=== PATIENT | male | born 1995 | race Caucasian/White ===

== ENCOUNTER 2019-12-02 18:36 | Emergency (ER) | payer OTHER ==
[~2019-12-02] VITALS: Ht 167.6 cm; Wt 75.0 kg
[2019-12-02] MEDS ORDERED: BACI500O21 TOP (19:59)
[2019-12-02 20:04] VITALS: BP 138/91
--- NOTE | 2019-12-02 20:04 | REP ---
Clinical: Trauma. Rule out foreign body. Technique: AP and lateral views of the cervical spine. Findings: Normal alignment and lordosis maintained. Vertebral bodies are intact. No acute fracture / compression injury or subluxation. Spinous processes are intact. Prevertebral and surrounding soft tissues are normal. No subcutaneous emphysema or foreign body. Impression: Normal examination. No foreign body. Electronically Signed by Jf Whyte MD 12/02/2019 07:55 P
--- NOTE | 2019-12-02 20:05 | REP ---
Clinical: Trauma. Rule out foreign body. Technique: AP and lateral views of the facial bones. Findings: Osseous structures and surrounding soft tissues are normal. No acute fracture or dislocation. No subcutaneous emphysema. No foreign body identified. Impression: Normal examination. No foreign body identified. Electronically Signed by Jf Whyte MD 12/02/2019 07:57 P
== END 2019-12-02 20:11 | disposition home or self-care (01) ==
LOC: M ED 18:36
DX: T21.11XA Burn of first degree of chest wall, initial encounter (principal)